=== PATIENT | male | born 1985 | race Caucasian/White ===

== ENCOUNTER 2016-10-13 21:21 | Emergency (ER) | payer OTHER ==
[~2016-10-13] VITALS: Ht 177.8 cm; Wt 77.1 kg
--- NOTE | 2016-10-13 22:19 | ED GI/GU/ABDOMINAL COMPLAINT ---
History of Present Illness General Chief Complaint: Abdominal Pain/Flank Pain Stated Complaint: ABD PAIN Source: patient Exam Limitations: no limitations Vital Signs & Intake/Output Vital Signs & Intake/Output Vital Signs Date Time Temp Pulse Resp B/P Pulse O2 O2 Flow FiO2 Ox Delivery Rate 10/13 2339 96.4 47 18 124/63 100 Room Air 10/13 2159 98.0 62 20 143/82 97 Room Air ED Intake and Output 10/14 0000 10/13 1200 Intake Total 1100 Output Total Balance 1100 Intake, IV 1100 Patient 170 lb Weight Allergies Coded Allergies: cefuroxime (From Ceftin) (Intermediate, RASH 10/13/16) Reconcile Medications No Known Home Medications Triage Note: RECEIVED 30 YO MALE C/O R MID ABDOMINAL PAIN RADIATING TO BACK, STARTED 1 PM TODAY. + NAUSEA, NO VOMITING/DIARRHEA. Triage Nurses Notes Reviewed? yes HPI: Patient complaining of sharp stabbing right upper quadrant pain that radiates straight through to his back since approximately 1 PM this afternoon. The pain is been constant however he did not notice the pain as bad when he took a hike with his son this afternoon. There is slight nausea but no vomiting. The pain started approximately half an hour after eating pizza for lunch. Patient did not eat dinner because of the nausea and anorexia. Currently the pain is 8 out of 10. Patient does not think taking hike alleviated the pain it shows that he did not think that he was concentrating on the pain so he did not notice it as much. Patient states that he has had similar episodes a few times in the past few months but the pain is always gone away after an hour or 2. The pain tonight is more intense than it has been in the past as well. There are no fevers or chills. There is no diarrhea. Patient denies any chest pain. Past History Travel History Traveled to [place] past 21 day No Medical History Any Pertinent Medical History? 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 No Review of Systems Review of Systems Constitutional: Reports: no symptoms. EENTM: Reports: no symptoms. Respiratory: Reports: no symptoms. Cardiovascular: Reports: no symptoms. GI: Reports: see HPI, abdominal pain, nausea. Genitourinary: Reports: no symptoms. Musculoskeletal: Reports: no symptoms. Skin: Reports: no symptoms. Neurological/Psychological: Reports: no symptoms. Hematologic/Endocrine: Reports: no symptoms. Immunologic/Allergic: Reports: no symptoms. All Other Systems: Reviewed and Negative Physical Exam Physical Exam General Appearance: well developed/nourished, alert, awake, moderate distress Head: atraumatic, normal appearance Eyes: Bilateral: PERRL, EOMI, other (ANICTERIC). Ears, Nose, Throat, Mouth: moist mucous membrane Neck: normal inspection, supple, full range of motion Respiratory: normal breath sounds, chest non-tender, no respiratory distress, lungs clear Cardiovascular: regular rate/rhythm, normal peripheral pulses Gastrointestinal: normal bowel sounds, soft, no organomegaly, tenderness, POSITIVE ALFREDO'S SIGN Back: normal inspection, normal range of motion Extremities: normal range of motion Neurologic/Psych: no motor/sensory deficits, awake, alert, oriented x 3, normal gait, normal mood/affect Skin: intact, normal color Core Measures ACS in differential dx? No Severe Sepsis Present: No Septic Shock Present: No Progress Differential Diagnosis: AMI, biliary colic, cholecystitis, diverticulitis, pancreatitis Plan of Care: Orders Procedure Date/time Status TROPONIN LEVEL 10/13 2217 Complete LIPASE 10/13 2217 Complete COMPREHENSIVE METABOLIC PANEL 10/13 2217 Complete CBC WITHOUT DIFFERENTIAL 10/13 2217 Complete AMYLASE 10/13 2217 Complete EKG 10/13 2217 Active Laboratory Tests 10/13/16 2225: Anion Gap 13, Estimated GFR > 60, BUN/Creatinine Ratio 13.0, Glucose 123 H, Calcium 9.4, Total Bilirubin 0.5, AST 26, ALT 36, Alkaline Phosphatase 52, Troponin I < 0.01, Total Protein 6.6, Albumin 4.2, Globulin 2.4, Albumin/ Globulin Ratio 1.8, Amylase 54, Lipase 325 H, CBC w Diff NO MAN DIFF REQ, RBC 4.61 L, MCV 86.4, MCH 29.6, RDW 13.8, MPV 7.8, Gran % 51.3, Lymphocytes % 34.3, Monocytes % 8.0, Eosinophils % 6.3 H, Basophils % 0.1, Absolute Granulocytes 5.9, Absolute Lymphocytes 3.9 H, Absolute Monocytes 0.9 H, Absolute Eosinophils 0.7, Absolute Basophils 0, PUBS MCHC 34.2 Diagnostic Imaging: Viewed by Me: CT Scan. Discussed w/RAD: CT Scan. Radiology Impression: PATIENT: OCTAVIANO CERRATO PRESENT AGE: 30 PATIENT ACCOUNT NO: [id number] : 85 LOCATION: [facility] ORDERING PHYSICIAN: OLGA LIDIA GIORDANO MD SERVICE DATE: 10/13/16 EXAM TYPE: CAT - CT ABD & PELVIS W IV CONTRAST EXAMINATION: CT ABDOMEN AND PELVIS WITH CONTRAST CLINICAL INFORMATION: Right upper quadrant pain. Concern for cholecystitis COMPARISON: None. TECHNIQUE: Multidetector volumetric imaging was performed of the abdomen and pelvis after the IV administration of 95 mL of Optiray 320 intravenous contrast. Sagittal and coronal reformatted images were obtained on the technologist's workstation. DLP: 283.29 mGy-cm. FINDINGS: LUNG BASES: The visualized lung bases are unremarkable. LIVER, GALLBLADDER, AND BILIARY TREE: The liver is normal in size, shape, and attenuation. No focal hepatic lesion or biliary ductal dilatation is present. There are small hyperdensities layering in the gallbladder likely due to gallstone. No edema around the gallbladder. No bile duct dilatation. Extra hepatic CBD measures 5 mm. PANCREAS: Unremarkable. SPLEEN: Unremarkable. ADRENAL GLANDS: Unremarkable. KIDNEYS AND URETERS: The kidneys are normal in size, shape, and attenuation. No hydronephrosis, hydroureter, or calculi seen. No perinephric stranding. BLADDER: Unremarkable. GASTROINTESTINAL TRACT: The small and large bowel are unremarkable. The appendix is unremarkable. ABDOMINAL WALL: No significant hernia is appreciated. LYMPH NODES: Normal. VASCULAR: Unremarkable. PELVIC VISCERA: Unremarkable. OSSEOUS STRUCTURES: Unremarkable. IMPRESSION: No acute abnormality. Normal appendix. Probable cholelithiasis. No acute change of the gallbladder wall or bile duct dilatation. Right upper quadrant ultrasound could be helpful for further assessment. DICTATED BY: NIKKI SOW MD DATE/TIME DICTATED:10/13/162309 PAINTER SUPERVISOR:IMMANUEL DATE/TIME TRANSCRIBED:2309 CONFIDENTIAL, DO NOT COPY WITHOUT APPROPRIATE AUTHORIZATION. < Electronically signed in Other Vendor System> SIGNED BY: NIKKI SOW MD [id number] Initial ED EKG: NSR, no ST T wave changes Comments: Pain decreased to a 6 out of 10 after IV morphine. PAIN RELIEVED AFTER IV TORADOL. Departure Departure Disposition: HOME OR SELF CARE Condition: Stable Clinical Impression Primary Impression: Biliary colic Referrals: HERMAN ALLEN,SUJATHA Brooks (PCP/Family) CHARO ALLEN,ELYSIA Stewart Additional Instructions: Have an outpatient ultrasound performed in the morning. Take Percocet as needed for any pain. Follow-up with Dr. Dickinson. Return if symptoms worsen or for any concerns. Departure Forms: Customer Survey General Discharge Information Prescriptions: Current Visit Scripts Oxycodone HCl/Acetaminophen (Percocet 5-325 MG Tablet) 1-2 TAB PO Q6P PRN PAIN #20 TAB
[2016-10-13 22:32] LABS: ABSOLUTE BASOPHIL COUNT 0 /CUMM (0.0-0.2); ABSOLUTE EOSINOPHIL COUNT 0.7 /CUMM (0.0-0.7); ABSOLUTE GRANULOCYTE CT 5.9 /CUMM (1.4-6.5); ABSOLUTE LYMPH COUNT 3.9 /CUMM (1.2-3.4); ABSOLUTE MONOCYTE COUNT 0.9 /CUMM (0.10-0.60); BASOPHIL % 0.1 % (0.0-2.0); EOSINOPHIL % 6.3 % (0-5); GRANULOCYTE % 51.3 % (42.2-75.2); HEMATOCRIT 39.8 % (42-52); MEAN CORPUSCULAR HGB 29.6 PG (27.0-31.0); MEAN CORPUSCULAR HGB CONC 34.2 G/DL (33.0-37.0); MEAN CORPUSCULAR VOLUME 86.4 FL (80.0-94.0); MEAN PLATELET VOLUME 7.8 FL (7.4-10.4); PLATELET COUNT 208 /CUMM (130-400); RBC DISTRIBUTION WIDTH 13.8 % (11.5-14.5); RED BLOOD CELL CT 4.61 /CUMM (4.70-6.10); WHITE BLOOD CELL COUNT 11.4 /CUMM (4.8-10.8)
--- NOTE | 2016-10-13 23:23 | CT SCAN REPORT ---
EXAMINATION: CT ABDOMEN AND PELVIS WITH CONTRAST CLINICAL INFORMATION: Right upper quadrant pain. Concern for cholecystitis COMPARISON: None. TECHNIQUE: Multidetector volumetric imaging was performed of the abdomen and pelvis after the IV administration of 95 mL of Optiray 320 intravenous contrast. Sagittal and coronal reformatted images were obtained on the technologist's workstation. DLP: 283.29 mGy-cm. FINDINGS: LUNG BASES: The visualized lung bases are unremarkable. LIVER, GALLBLADDER, AND BILIARY TREE: The liver is normal in size, shape, and attenuation. No focal hepatic lesion or biliary ductal dilatation is present. There are small hyperdensities layering in the gallbladder likely due to gallstone. No edema around the gallbladder. No bile duct dilatation. Extra hepatic CBD measures 5 mm. PANCREAS: Unremarkable. SPLEEN: Unremarkable. ADRENAL GLANDS: Unremarkable. KIDNEYS AND URETERS: The kidneys are normal in size, shape, and attenuation. No hydronephrosis, hydroureter, or calculi seen. No perinephric stranding. BLADDER: Unremarkable. GASTROINTESTINAL TRACT: The small and large bowel are unremarkable. The appendix is unremarkable. ABDOMINAL WALL: No significant hernia is appreciated. LYMPH NODES: Normal. VASCULAR: Unremarkable. PELVIC VISCERA: Unremarkable. OSSEOUS STRUCTURES: Unremarkable. IMPRESSION: No acute abnormality. Normal appendix. Probable cholelithiasis. No acute change of the gallbladder wall or bile duct dilatation. Right upper quadrant ultrasound could be helpful for further assessment.
[2016-10-14] MEDS ORDERED: PERCOCET 5-3251 EACH PO (00:54)
[2016-10-14 01:02] VITALS: BP 134/71
== END 2016-10-14 01:05 ==
LOC: ERH 21:21
PROVIDERS: Emergency Medicine
DX: K80.50 Calculus of bile duct without cholangitis or cholecystitis without obstruction (principal)
CPT/HCPCS: 74177; 93005; 93010; 96361; 96374; 96375; J1885; J2405

== ENCOUNTER → 2016-11-09 | Day surgery (SDC) | payer OTHER ==
[~2016-11-09] VITALS: Ht 177.8 cm; Wt 77.1 kg
[~2016-11-09] MED LIST: PERCOCET 5-3251 EACH PO
--- NOTE | 2016-11-09 19:14 | Operative Report ---
Operative/Inv Procedure Report Surgery Date: 11/09/16 Name of Procedure: Laparoscopic cholecystectomy for Symptomatic gallstones Pre-Operative Diagnosis: Symptomatically gallstones Post-Operative Diagnosis: Same Estimated Blood Loss: scant Surgeon/Or Scrub Tech: CHELY ALLEN,MADDIE Davis Anesthesia: general endotracheal tube Operative/Procedure Note Note: Patient was positioned supine. After successful induction of general anesthesia, the patient's abdomen was clipped, prepped and draped in the usual sterile fashion. Local anesthetic was injected at the top of the umbilicus and then a curved horizontal incision little over a centimeter was made there with a 15 blade and then deepened to the midline fascia which was incised vertically a little over a centimeter. Both sides were secured with 0 Vicryl stay sutures and then the thin peritoneal layer was entered, 10 mm Navarro trocar inserted obliquely to the right, and the gas was turned on to 15 mm. After insufflation and repositioning to reverse Trendelenburg, 3 more dissecting 5 mm trochars were placed in the right subcostal area, first lateral, then mid-subcostal, then subxiphoid. The gallbladder fundus was grasped from the lateral port and retracted up over the edge of the liver and then we dissected out the area of the triangle of Calot while retracting the infundibulum caudally / laterally. First the cystic duct was identified, isolated at the neck, clipped 3 times, divided after the second clip and then in similar fashion the cystic artery was identified medially, dissected and divided. Then the gallbladder was from the liver bed using cautery then lowered into an Endobag and removed through the umbilical incision. The instruments and then the trochars were removed letting the gas escape. The fascial incision was closed with a figure 8 Vicryl then all 4 skin incisions were closed with interrupted subcuticular 4-0 Monocryl, followed by Mastisol Steri-Strips and Bandaids. Estimated blood loss was minimal, lap and sponge counts were correct, wound expectancy was clean- contaminated, IV fluids crystalloid, complications none, patient tolerated the procedure well and was returned to the recovery room in satisfactory condition.
== END ==
LOC: STS 02:38
DX: K80.10 Calculus of gallbladder with chronic cholecystitis without obstruction (principal); G35 Multiple sclerosis
CPT/HCPCS: 88304; J2250